=== PATIENT | female | born 1975 | race Caucasian/White ===

== ENCOUNTER 2023-09-19 12:52 | Emergency (ER) | payer SELFPAY ==
[2023-09-19] MEDS ORDERED: Ketorolac Tromethamine 30 MG/ML VIAL ONE (13:47)
[2023-09-19 14:12] LABS: SARS-CoV-2 NAA Rapid Test Not Detected (NotDetected)
[2023-09-19] MEDS ORDERED: Acetaminophen 500 MG TAB ONE (14:32)
== END 2023-09-19 14:34 | disposition home or self-care (01) ==
LOC: ERS 12:52
DX: J10.1 Influenza due to other identified influenza virus with other respiratory manifestations (principal); F17.210 Nicotine dependence, cigarettes, uncomplicated
CPT/HCPCS: 87081; 87430; 96372; 99283; J1885

== ENCOUNTER 2024-11-27 15:22 | Emergency (ER) | payer BC, OTHER | END 2024-11-27 19:15 | disposition home or self-care (01) | LOC: ERS 15:22 | DX: T65.891A Toxic effect of other specified substances, accidental (unintentional), initial encounter (principal); J68.0 Bronchitis and pneumonitis due to chemicals, gases, fumes and vapors; F17.210 Nicotine dependence, cigarettes, uncomplicated | CPT/HCPCS: 99284 ==